=== PATIENT | female | born 1965 | race Caucasian/White ===

== ENCOUNTER 2017-02-13 08:05 | Inpatient (IN) | payer OTHER ==
[~2017-02-13 08:05] MED LIST: Buffered Lidocaine 0.9% SYRIN* 5 ML/SYR SYRINGE INTRADERM ONE
[2017-02-13] MEDS ORDERED: ceFAZolin 2 GM PREMIX(*) 2 GM/50 ML BAG IVPB ONE (08:15)
[2017-02-13] MEDS ORDERED: Buffered Lidocaine 0.9% SYRIN* 5 ML/SYR SYRINGE ONE (08:15)
[2017-02-13] MEDS ORDERED: Midazolam* 1 MG/ML 5 ML VIAL (5 MG) ONE ×3 (10:13→11:11)
[2017-02-13] MEDS ORDERED: Morphine PF AMP (0.5MG/ML)* 5 MG/10 ML AMP ONE (10:18)
[2017-02-13] MEDS ORDERED: fentaNYL* 50 MCG/ML 2 ML VIAL (100 MCG VIAL) ONE ×2 (10:29→12:14)
[2017-02-13] MEDS ORDERED: PROCHLORPERAZINE INJ 5 MG/ML 2 ML VIAL ONE (10:36)
[2017-02-13] MEDS ORDERED: Propofol* 10 MG/ML 20 ML BTL IV PUSH ONE ×2 (10:36→12:07)
[2017-02-13] MEDS ORDERED: Ondansetron INJ* 2 MG/ML VIAL IV PRN ×2 (11:25→11:26)
[2017-02-13] MEDS ORDERED: DiMENhydriNATE IV* 50 MG/ML VIAL IV PUSH PRN ×2 (11:25→11:26)
[2017-02-13] MEDS ORDERED: HYDROmorphone* 1 MG/ML 1 ML SYR IV PRN (11:25)
[2017-02-13] MEDS ORDERED: fentaNYL* 50 MCG/ML 2 ML VIAL (100 MCG VIAL) IV PRN (11:25)
[2017-02-13] MEDS ORDERED: Nalbuphine* 20 MG/ML 1 ML VIAL IV PRN ×2 (11:26)
[2017-02-13] MEDS ORDERED: oxyCODONE/Acetamin 5/325 MG* TAB PO PRN (11:26)
[2017-02-13] MEDS ORDERED: diPHENhydraMINE IV* 50 MG/ML 1 ml VIAL (BENADRYL) IV PRN (11:26)
[2017-02-13] MEDS ORDERED: HYDROcodone/ACETAMIN 5-325 MG* 1 TAB PO PRN (11:26)
[2017-02-13] MEDS ORDERED: Naloxone* 2 MG in NS 0.9% 250 ML* 250 ML IV PRN (11:26)
[2017-02-13] MEDS ORDERED: Naloxone* 0.4 MG/ML 1 ML VIAL IV PRN (11:26)
[2017-02-13] MEDS ORDERED: Ketorolac INJ* 30 MG/ML 1 ML VIAL IV PRN (11:26)
[2017-02-13] MEDS ORDERED: Bisacodyl SUPP* 10 MG SUPP PR PRN (13:17)
[2017-02-13] MEDS ORDERED: Polyethylene Glycol 3350* 17 GM PACKET PO PRN (13:17)
[2017-02-13] MEDS ORDERED: diPHENhydraMINE IV* 50 MG/ML 1 ml VIAL (BENADRYL) ONE (13:54)
[2017-02-13] MEDS ORDERED: D5W 1/2 NS 1000 ML BAG* 1,000 ML IV SCH (14:00)
--- NOTE | 2017-02-13 14:08 | RAD ---
INDICATION: Status post left hip arthroplasty COMPARISON: Preoperative radiographic series February 01, 2017 TECHNIQUE: 3 views of the left hip were obtained. FINDINGS: In the AP view the bilateral hip prostheses are anatomically aligned. The new left hip prosthesis is anatomically aligned in the lateral view. There is no radiographic appearance of periprostatic fracture. Expected postoperative surgical changes include subcutaneous gas and surgical skin tiffanie overlying the lateral hip. IMPRESSION: Anatomic alignment of left hip prostheses as described above.
[2017-02-13] MEDS ORDERED: Warfarin TAB(*) 4 MG PO ONE (17:00)
[2017-02-13] MEDS: ceFAZolin VIAL(*) 1 GM in NS 0.9% 50 ML* 50 ML IVPB SCH (20:27)
[2017-02-13] MEDS: Docusate CAP* 100 MG PO SCH (20:27)
[2017-02-13] MEDS: Magnesium Hydroxide LIQ* 30 ML UDC PO SCH (20:28)
[2017-02-14] MEDS ORDERED: diPHENhydraMINE LIQ* 12.5 MG/5 ML UDC PO PRN (03:26)
[2017-02-14] MEDS ORDERED: Morphine INJ* 4 MG/ML 1 ML SYRINGE IV PRN (03:26)
[2017-02-14] MEDS ORDERED: Ondansetron INJ* 2 MG/ML VIAL IV PRN (03:26)
[2017-02-14] MEDS ORDERED: diPHENhydraMINE IV* 50 MG/ML 1 ml VIAL (BENADRYL) IV PRN (03:26)
[2017-02-14] MEDS ORDERED: Ondansetron TAB* 4 MG PO PRN (03:26)
[2017-02-14] MEDS: oxyCODONE TAB* 5 MG TAB PO PRN ×5 (04:25→20:51)
[2017-02-14] MEDS: ceFAZolin VIAL(*) 1 GM in NS 0.9% 50 ML* 50 ML IVPB SCH ×2 (04:25→12:33)
[2017-02-14] MEDS: Docusate CAP* 100 MG PO SCH ×2 (07:47→20:52)
[2017-02-14] MEDS: Magnesium Hydroxide LIQ* 30 ML UDC PO SCH ×2 (07:47→20:52)
[2017-02-14] MEDS: Vitamin THERAPEUTIC TAB PO SCH (07:47)
[2017-02-14 08:27] LABS: Hematocrit 33 % (35-47); Hemoglobin 11.4 g/dl (12.0-16.0)
[2017-02-14 08:43] LABS: BUN/Creatinine Ratio 22.4 (8-20); Calcium 8.3 mg/dL (8.6-10.3); EGFR African American 139.9 (>60); EGFR Non-African American 108.7 (>60); Potassium 3.8 mmol/L (3.5-5.0)
--- NOTE | 2017-02-14 08:48 | OP ---
DATE OF OPERATION: 02/13/17 - ROOM #342 DATE OF : 61 SURGEON: Henry Owen MD EDUCATOR SENIOR CLINICAL: Alee Khan RPA ANESTHESIOLOGIST: Santiago Rutledge MD ANESTHESIA: Spinal and sedation. PRE-OP DIAGNOSIS: Osteoarthritis to left hip. POST-OP DIAGNOSIS: Osteoarthritis to left hip. OPERATIVE PROCEDURE: Left total hip arthroplasty. INDICATIONS: Ms. Champagne is a 51-year-old female who, 3 years ago, underwent a right total hip arthroplasty. She had done well and had gotten back to work and all other activities. Her left hip had only been bothering her a little bit and over the past 3 years that has been getting worse. She presented to the office requesting a left total hip arthroplasty so that she could continue to work this upcoming fall and continue with her activities. She had very specific groin pain and changes by x-ray. I discussed with her that a total hip arthroplasty should work well to decrease her pain and improve her function. Risks of surgery such as infection, scar formation, stiffness, DVT, pulmonary embolism, hardware failure, and leg length discrepancy and instability were some of the risks discussed. She had been declared medically optimized and wished to proceed. ESTIMATED BLOOD LOSS: 200 cc. COMPLICATIONS: None. HARDWARE: Jameel #9 M/L taper, 50-mm Continuum cup, 15-degree elevated liner, - 3.5 mm, and 32-mm ceramic head. DESCRIPTION OF PROCEDURE: The patient was brought to the OR and spinal anesthesia was introduced. Mcghee catheter was placed. She was then rolled into the right lateral decubitus position. Alee Khan was present for the entire case and it could not have been performed without her. She was secured with a peg board and because of her fat, there was still a bit of play with her body. Left hip area was prepped and then draped. Incision was made centered where I could just about feel the greater trochanter, it was extended proximally and distally for about 8 cm. Incision was carried down through the skin and subcutaneous fat. Continuous navigation was done so that I could know which direction I would not wander into the fat as she had quite the copious amounts. Coming up to the fascia, fascia was then sharply incised and greater trochanteric bursa was taken down using electrocautery. Hohmann was placed under the gluteus medius/gluteus minimus and by palpation, I could feel piriformis and capsule along with some of the short external rotators were taken down using electrocautery and then a T-capsulotomy was made. I had not taken enough to dislocate, so I came back and extended the T being very careful not to plunge into all the fat that she had as I did not want to injury sciatic nerve. The hip was then dislocatable. Cutting guide was placed and the femoral neck was marked. Femoral head was then resected. Anterior C-retractor was placed as well as a broad Hohmann inferiorly and this gave adequate exposure to the acetabulum. Labrum posteriorly was taken down using sharp dissection. Beginning with a 42- reamer, she was first deepened a little bit and then progressively reamed. She had a 50 on the opposite side and was aiming to place a 50 on this side as well. She was progressively reamed and at 49, I thought I had a nice [id number] fit and a 50 cup was called for. The 50 cup was impacted into place and had a nice rim edge fit. Two screws were placed and a nice bite was obtained. Trial liner was placed and attention was turned to the femur. Box osteotome was eventually used to open the femoral canal. The canal finder was passed. Beginning with a 5 broach, she was progressively broached but at a 9, I really seemed quite tight. Calcar planer was used to plane the femoral neck to even out the femoral neck cut and she was trialed with a 0 and then a -3.5 head with full adduction, and starting at about 30 degrees of internal rotation, she would start to lever out. With dislocating her, the stem was not at all loose and, considering she had a 10 on the opposite side that I had a 9 on this side, I thought this would be alright. A 15-degree elevated liner was impacted into place. #9 stem was impacted into place but with all of her fat pushing in, I did not notice that on the underside the lap pad had gotten trapped in a little bit. Stem would not fully seat and was a little bit proud and was trying to get a better view, eventually I saw that the lap pad was trapped. Femoral extractor was called for and the extractor was hooked over the trunnion and back flapped out. This allowed the lap pad to be fully removed. Stem was then fully seated the way the broach had been. She was again trialed with the -3.5 head and at this time had tremendous stability where she would not start to lever out until she was 70 degrees of internal rotation. -3.5-mm Biolox head was impacted into place. Hip was easily located and then copiously pulse lavaged. Short external rotators and capsules were repaired together to the posterior aspect of the greater trochanter. Fascia was repaired using interrupted #1 Vicryl sutures. Subcutaneous tissues were repaired in layers using 2-0 Vicryl. Skin was closed using tiffanie. Sterile dressing was applied. The patient was rolled on to the hospital bed and was stable on transfer to the recovery room. [id number]/[facility] #: [id number] ADITYA
--- NOTE | 2017-02-14 09:15 | PN ---
Progress Note - Progress Note Date of Service: 02/14/17 SOAP: Subjective: []Patient seen OOB in chair. Feels more comfortable sitting in chair than lying in bed. Pain well managed. Denies SOB, CP or dizziness. Objective: [] Vital Signs Temp 98.7 F 02/14/17 07:48 Pulse 81 02/14/17 07:48 Resp 16 02/14/17 08:27 BP 105/56 02/14/17 07:48 Pulse Ox 100 02/14/17 07:48 Intake & Output 02/13/17 02/14/17 02/14/17 18:59 06:59 18:59 Intake Total 2550 1874 Output Total 550 500 Balance 1999 1374 Weight 227 lb Intake: IV Fluids 2150 914 D5 1/2 NS 914 LR 2100 NS 50ML, Cefazolin 2G 50 IVPB 60 Kefzol 60 Oral 400 900 Output: Rincon 350 500 Estimated Blood Loss 200 Other: # Bowel Movements 0 Laboratory Results - last 24 hr 02/14/17 02/14/17 02/14/17 07:54 07:54 07:54 Hgb 11.4 L Hct 33 L INR (Anticoag Therapy) 1.34 H Sodium 129 L Potassium 3.8 Chloride 101 Carbon Dioxide 26 Anion Gap 2 BUN 13 Creatinine 0.58 Est GFR ( Amer) 139.9 Est GFR (Non-Af Amer) 108.7 BUN/Creatinine Ratio 22.4 H Glucose 125 H Calcium 8.3 L Left hip dressing is dry and intact calf non tender and soft +DF/PF left ankle sensation and circulation intact distally Assessment: []s/p Left total hip arthroplasty POD #1 Plan: []PT/OT WBAT Coumadin with heparin bridge- 6mg today Discontinue rincon catheter Home Thurs with [facility]
[2017-02-14] MEDS: Heparin VIAL(*) 5000 UNITS/ML VIAL (FIVE THOUSAND) SUBCUT SCH ×2 (14:14→21:49)
[2017-02-14] MEDS ORDERED: Warfarin TAB(*) 6 MG PO ONE (17:00)
[2017-02-15] MEDS: oxyCODONE TAB* 5 MG TAB PO PRN ×5 (00:56→20:36)
[2017-02-15] MEDS: Heparin VIAL(*) 5000 UNITS/ML VIAL (FIVE THOUSAND) SUBCUT SCH (05:24)
[2017-02-15 06:26] LABS: Hematocrit 31 % (35-47); Hemoglobin 10.4 g/dl (12.0-16.0)
[2017-02-15] MEDS ORDERED: Cyclobenzaprine TAB* 10 MG PO PRN (07:09)
[2017-02-15] MEDS: Vitamin THERAPEUTIC TAB PO SCH (09:25)
[2017-02-15] MEDS: Magnesium Hydroxide LIQ* 30 ML UDC PO SCH ×2 (09:25→20:37)
[2017-02-15] MEDS: Docusate CAP* 100 MG PO SCH ×2 (09:25→20:36)
[2017-02-15] MEDS: Acetaminophen TAB* 325 MG PO PRN ×2 (09:26→16:48)
[2017-02-15] MEDS: MEDROXYPR PO SCH (09:27)
[2017-02-15] MEDS: ESTROGENS PO SCH (09:27)
--- NOTE | 2017-02-15 09:54 | PN ---
Progress Note - Progress Note Date of Service: 02/15/17 Note: Patient was seen by Dr. Owen this morning. Patient reports more left hip pain than yesterday. Dressings removed from the left hip incision. No drainage or bruising. Wound benign. New ABD and tape applied.
[2017-02-15] MEDS: oxyCODONE/Acetamin 5/325 MG* TAB PO PRN (12:42)
[2017-02-15] MEDS ORDERED: Warfarin TAB(*) 4 MG PO ONE (17:00)
[2017-02-15] MEDS ORDERED: NS 0.9% 500 ML BAG* 500 ML IV ONE (23:00)
[2017-02-16] MEDS: oxyCODONE/Acetamin 5/325 MG* TAB PO PRN (06:47)
[2017-02-16 08:33] LABS: Hematocrit 31 % (35-47); Hemoglobin 10.5 g/dl (12.0-16.0)
[2017-02-16] MEDS: Docusate CAP* 100 MG PO SCH (08:35)
[2017-02-16] MEDS: MEDROXYPR PO SCH (08:35)
[2017-02-16] MEDS: Vitamin THERAPEUTIC TAB PO SCH (08:35)
[2017-02-16] MEDS: ESTROGENS PO SCH (08:35)
[2017-02-16] MEDS: Magnesium Hydroxide LIQ* 30 ML UDC PO SCH (08:36)
--- NOTE | 2017-02-16 10:11 | PN ---
Progress Note - Progress Note Date of Service: 02/16/17 SOAP: Subjective: []Patient seen OOB in chair. Doing well. Ready to go home today. Objective: [] Vital Signs Temp 99.1 F 02/16/17 07:32 Pulse 73 02/16/17 07:32 Resp 18 02/16/17 08:36 BP 104/49 02/16/17 07:32 Pulse Ox 96 02/16/17 07:32 Intake & Output 02/15/17 02/16/17 02/16/17 18:59 06:59 18:59 Intake Total 1925 1150 440 Output Total 800 500 500 Balance 1125 650 -60 Intake: IV Fluids 500 NS 500 Oral 1925 650 440 Output: Urine 800 500 500 Other: Estimated Void Medium # Bowel Movements 0 Estimated Stool Amount Small Laboratory Results - last 24 hr 02/16/17 02/16/17 07:43 07:43 Hgb 10.5 L Hct 31 L INR (Anticoag Therapy) 1.37 H Left hip benign calf NT and soft + DF/PF left ankle Assessment: []s/p LTH arthroplasty POD #3 Plan: []Discharge home Coumadin 8 mg today before discharge [facility] to follow F/U as scheduled in office with Dr. Owen
[2017-02-16] MEDS: oxyCODONE TAB* 5 MG TAB PO PRN ×2 (10:15→14:31)
[2017-02-16 12:16] VITALS: BP 106/54
[2017-02-16] MEDS ORDERED: Warfarin TAB(*) 4 MG PO ONE ×2 (14:30)
[2017-02-16] MEDS: Acetaminophen TAB* 325 MG PO PRN (14:31)
--- NOTE | 2017-02-17 07:58 | DS ---
DISCHARGE SUMMARY: DATE OF ADMISSION: 02/13/17 DATE OF DISCHARGE: 02/16/17 ATTENDING PHYSICIAN: Henry Owen MD ADMISSION DIAGNOSIS: Osteoarthritis, left hip. DISCHARGE DIAGNOSIS: Osteoarthritis, left hip. SURGERY PERFORMED: Left total hip arthroplasty. HOSPITAL COURSE: The patient is a 51-year-old female, who underwent right total hip arthroplasty chi masdelma 3 years ago and did well with that. Her left hip began bothering her over the last few years and became significantly worse to the point where her activities of daily living were significantly affected. She had specific x-ray changes and groin pain. It was felt she would benefit from total hip arthroplasty on the left. She elected to proceed and was taken to the operating room on the yesenia e of 02/13/17 for the aforementioned procedure by Dr. Owen. She tolerated the procedure well and left the operating room in stable condition. Postoperatively, the patient progressed satisfactorily with physical therapy and occupational therapy goals, bearing weight as tolerated on the left lower extremity. She had no acute postoperative complications. She mastered her physical therapy and oc cupational therapy goals and it was felt she was stable for discharge to home on the date of 7. CONDITION ON DISCHARGE: The patient's temp 99.1, blood pressure 104/49, respiratory rate 16, O2 sat s 96%, pulse 73. The left hip is healing uneventfully without evidence of infection. Her calf is s oft and nontender. Her neurovascular status is intact with positive dorsiflexion and plantarflexion of the left ankle. PLAN: Discharged to home with [facility] services, who will remove tiffanie in 10 to 12 days. She will con tinue to bear weight as tolerated and continue with hip precautions as taught. She will be given 8 mg of Coumadin today, 02/16/17, before discharge. I will have her take 4 mg of Coumadin on Monday, 02/17; 2 mg of Coumadin on Monday, 02/18; and 2 mg of Coumadin on Monday, 02/19. She will have a repeat INR blood draw on Monday, 02/20, with dosages to follow. We recommend a follow up with Dr. May kent in roughly 3 to 4 weeks as scheduled. She will call the office if she has drainage, increase d hip pain or swelling, calf pain or swelling, shortness of breath, chest pain. VON CHEN [id number]/[facility] #: [id number]
== END 2017-02-16 15:45 | disposition home health service (06) | DRG 301 ==
LOC: AA 08:05 → SSU 14:39
PROVIDERS: ADMIT Orthopaedic Surgery; ATTEND Orthopaedic Surgery
PROC: 0SRB04Z Replacement of Left Hip Joint with Ceramic on Polyethylene Synthetic Substitute, Open Approach (ICD-10-PCS; principal; 2017-02-13 09:30)
DX: M16.12 Unilateral primary osteoarthritis, left hip (principal); Z68.41 Body mass index [BMI] 40.0-44.9, adult; I10 Essential (primary) hypertension; Z96.641 Presence of right artificial hip joint; Z98.84 Bariatric surgery status; Z82.49 Family history of ischemic heart disease and other diseases of the circulatory system; E66.9 Obesity, unspecified
CPT/HCPCS: 36415; 80048; 85014; 85018; 85610; 88304; 88311; 94760; A9270-GY; C1713; C1776; J0690; J0780; J1200; J1240; J1644; J1885; J2250; J2704; J3010